=== PATIENT | male | born 1995 | race Caucasian/White ===

== ENCOUNTER 2016-06-14 10:20 | Day surgery (SDC) | payer BC ==
[2016-06-13 09:09] VITALS: BMI 22.0
--- NOTE | 2016-06-14 12:44 | HP ---
Admitting History and Physical - Admission Chief Complaint: right groin pain for 6 months History of Present Illness: 20 yo M presents with recurrent right groin pain for 6 months following heavy lifting at work. Patient states he uses motrin for the pain. He denies any bulge in the right groin. History Source: Patient Limitations to Obtaining History: No Limitations - Past Medical History TERRITORY REPRESENTATIVE: No: Migraine, Seizure, Syncope Cardiovascular: No: HTN, Hyperlipdemia, Murmur Pulmonary: No: Asthma, Pneumonia Gastrointestinal: No: Cancer, Constipation, GERD, GI Bleed, Inflamatory Bowel Disease, Irritable Bowel Disease, Peptic Ulcer Disease Renal/: No: Renal Failure, Cancer, Hematuria, Renal Calculi, UTI Heme/Onc: No: Anemia, Bleeding Disorder Endocrine: No: Diabetes Mellitus, Hyperthyroidism, Hypothyroidism - Past Surgical History Additional Past Surgical History: Herniorraphy age 6 months - Smoking History Smoking history: Never smoked - Alcohol/Substance Use Hx Alcohol Use: No Home Medications - Allergies Allergies/Adverse Reactions: Allergies Allergy/AdvReac Type Severity Reaction Status Date / Time No Known Allergies Allergy Verified 06/13/16 09:09 - Home Medications Home Medications: Ambulatory Orders Ibuprofen [Motrin -] 400 mg PO QID 06/13/16 Review of Systems - Review of Systems Constitutional: reports: No Symptoms Cardiovascular: reports: No Symptoms Respiratory: reports: No Symptoms Gastrointestinal: reports: No Symptoms Genitourinary: reports: No Symptoms Integumentary: reports: No Symptoms Neurological: reports: No Symptoms Hematology/Lymphatic: reports: No Symptoms Physical Examination Vital Signs: Vital Signs Temperature 97.9 F 06/14/16 11:02 Pulse Rate 58 L 06/14/16 11:02 Respiratory Rate 16 06/14/16 11:02 Blood Pressure 125/66 06/14/16 11:02 O2 Sat by Pulse Oximetry (%) 100 06/14/16 11:02 Constitutional: Yes: Well Nourished, No Distress Eyes: Yes: WNL HENT: Yes: WNL Neck: Yes: WNL Cardiovascular: Yes: WNL Respiratory: Yes: WNL Gastrointestinal: Yes: WNL (No palpable masses), Normal Bowel Sounds, Soft Musculoskeletal: Yes: WNL Extremities: Yes: WNL Neurological: Yes: WNL, Alert, Oriented Assessment/Plan 20 yo M presents with recurrent right groin pain for 6 months following heavy lifting at work. Patient presents for diagnostic laparoscopy with Dr. Lowry on 06/14/16.
[2016-06-14] MEDS ORDERED: PROPOFOL 20 ML ONE (12:52)
[2016-06-14] MEDS ORDERED: ROCURONIUM BROMIDE 50 MG/5 ML VIAL ONE (12:52)
[2016-06-14] MEDS ORDERED: MIDAZOLAM HCL 2 MG/2 ML SINGLE DOSE VIAL ONE (12:53)
[2016-06-14] MEDS ORDERED: ceFAZolin SODIUM 1 GM VIAL IVPB ONE (13:25)
[2016-06-14] MEDS ORDERED: ceFAZolin SODIUM 1 GM VIAL ONE (13:28)
[2016-06-14] MEDS ORDERED: DEXAMETHASONE SOD PHOSPHATE 4 MG/1 ML VIAL ONE (13:48)
[2016-06-14] MEDS ORDERED: KETOROLAC TROMETHAMINE 30 MG/1 ML VIAL ONE (13:48)
[2016-06-14] MEDS ORDERED: GLYCOPYRROLATE 0.2 MG/1 ML VIAL ONE (13:48)
[2016-06-14] MEDS ORDERED: BUPIVACAINE HCL/PF 0.5% (5MG/ML) 10 ML VIAL ONE (13:50)
[2016-06-14] MEDS ORDERED: NEOSTIGMINE METHYLSULFATE 0.5 MG/ML - 10 ML MDV ONE (13:50)
[2016-06-14] MEDS ORDERED: BUPIVACAINE HCL/PF 0.5% (5MG/ML) 10 ML VIAL IJ ONE (14:02)
[2016-06-14] MEDS ORDERED: oxyCODONE HCL 5 MG TABLET PO PRN (14:11)
[2016-06-14] MEDS ORDERED: ONDANSETRON 4 MG/2 ML VIAL IVPUSH PRN (14:11)
[2016-06-14] MEDS ORDERED: LACTATED RINGERS SOLUTION 1,000 ML IV SCH (14:15)
--- NOTE | 2016-06-14 14:26 | OP ---
Operative Note - Note: Operative Date: 06/14/16 Pre-Operative Diagnosis: lower abdominal pain. history of hernia repair Operation: diagnostic laparoscopy Post-Operative Diagnosis: Same as Pre-op Surgeon: Joshua Lowry Machine Operator Farmworker: Trena Choi Anesthesia: General Blood Volume Replaced (mls): 5 Operative Report Dictated: Yes
[2016-06-14] MEDS ORDERED: ONDANSETRON 4 MG/2 ML VIAL ONE (14:29)
--- NOTE | 2016-06-14 14:29 | SURG ---
Surgery Body Former Note Body Former: Trena Choi PA-C Date of Service: 06/14/16 Diagnosis: lower abdominal pain, history of hernia repair Procedure: diagnostic laparoscopy I was present for the entirety of the operative procedure. For further detail, please refer to operative report. Visit type - Case Type Case Type: Scheduled Admission - New patient This patient is new to me today: Yes Date on this admission: 06/14/16
[2016-06-14 17:51] VITALS: TEMP 97.8
[2016-06-14 18:31] VITALS: BP 124/55; PULSE 60
--- NOTE | 2016-06-16 16:55 | OP ---
DATE OF OPERATION: 06/14/2016 PREOPERATIVE DIAGNOSIS: Lower abdominal pain. History of bilateral inguinal hernia repairs. POSTOPERATIVE DIAGNOSIS: Lower abdominal pain. History of bilateral inguinal hernia repairs. PROCEDURES: Diagnostic laparoscopy. SURGEON: Joshua Lira M.D. HAND BLOCKER: Lamin Saravia COMPLICATIONS: None. BLEEDING LOSS: 10 mL. SPECIMENS: None. CONDITION: The patient tolerated the procedure well. This is a 20-year-old male who has a history of bilateral inguinal hernia repairs who presented with right side greater than left lower abdominal pain. 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 Physical examination did reveal a pulse on the right side, however, no clinically clear evidence of a hernia so the patient was scheduled for a diagnostic laparoscopy to rule out a hernia given the difficult examination and consider repair at the same time so he was consented for the procedure. Risks and benefits discussed and he was taken to the operating room and placed in supine position. After induction of general anesthesia, he was prepped and draped in the usual sterile fashion. At this point a periumbilical incision was made with the scalpel and carried through subcutaneous tissues. Cautery was used to control hemostasis. At this point then the fascia was incised. A camera was inserted into the peritoneal cavity and sutures were then placed to secure the ports in standard [place] approach. At this point the insufflation was established to a pressure of 15 mmHg and then the 10-mm scope was introduced and a diagnostic laparoscopy was performed. With the patient in Trendelenburg position the pelvis was carefully examined. The indirect orifice on the right and left side were both properly sealed. There was no evidence of an indirect hernia. The direct space on the left side appeared to be weaker with an indentation suggestive of a possible developing hernia. On the right side the impression was less significant. There were no other pathologies identified of the peritoneal cavity. At this point the endoscope and port were removed and the fascia was closed with 0 Vicryl sutures. The port sites were closed with 4-0 Monocryl. Dermabond was applied. The patient was returned to the recovery room awake, alert, and in stable condition. He tolerated the procedure well. JOSHUA LIRA M.D. SUSAN/[id number]
== END 2016-06-14 18:30 | disposition home or self-care (01) ==
LOC: JASU-SURG 10:20 → EDBD 13:00 → JASU-SURG 18:30
PROVIDERS: ATTEND Surgery
PROC: 0WJJ4ZZ Inspection of Pelvic Cavity, Percutaneous Endoscopic Approach (ICD-10-PCS; principal; 2016-06-14 13:00)
DX: R10.30 Lower abdominal pain, unspecified (principal); Z87.898 Personal history of other specified conditions
CPT/HCPCS: 94760